=== PATIENT | female | born 1945 | race African-American/Black ===

== ENCOUNTER 2023-03-14 14:38 | Emergency (ER) | payer MEDICARE, OTHER ==
[~2023-03-14] VITALS: Ht 160 cm; Wt 68.0 kg
[~2023-03-14 14:38] MED LIST: ASPI-605 PO; LEVO150T8 PO; LISI10TA29 PO
[2023-03-14 15:00] VITALS: TEMP 98.4
[2023-03-15 06:32] VITALS: BP 127/62; O2SAT 97
== END 2023-03-15 08:10 | disposition short-term general hospital (02) ==
LOC: ER 14:40
DX: T81.31XA Disruption of external operation (surgical) wound, not elsewhere classified, initial encounter (principal); I10 Essential (primary) hypertension; Z79.82 Long term (current) use of aspirin; Z98.890 Other specified postprocedural states; Z79.899 Other long term (current) drug therapy; Y83.9 Surgical procedure, unspecified as the cause of abnormal reaction of the patient, or of later complication, without mention of misadventure at the time of the procedure; Y92.89 Other specified places as the place of occurrence of the external cause